=== PATIENT | female | born 1980 | race Caucasian/White ===

== ENCOUNTER 2016-06-23 19:14 | Emergency (ER) | payer OTHER ==
[~2016-06-23] VITALS: Ht 160 cm; Wt 65.9 kg
[~2016-06-23 19:14] MED LIST: ALB083NB3 INH; FLO110 IH; LEVO175T29 PO; ProAirHFA INH
[2016-06-23 19:17] VITALS: BP 156/90; PULSE 77; RESP 16; O2SAT 99
--- NOTE | 2016-06-23 19:51 | ED.REPORT ---
HPI-Chest Pain Under 40 Date of Service Jun 23, 2016 ED Provider: Monik Uriarte MD Pt is a 36 y/o female w/ a hx of anxiety presenting to the ED c/o intermittent rapid palpitations onset 3 days ago. She has general anxiety disorder and believed her palpiatiosn to be associated with this although Xanax did not provide any relief. She then thought it may be related to her albuterol inhaler but she has been experiencing episodes not related to this. These episodes have occurred 5 times a day. She noticed today SOB with exertion while walking up stairs along with some fatigue. She denies CP, nausea, vomiting, diaphoresis. She denies unilateral leg swelling, recent long periods of immobilization, exogenous estrogen use. Family history: [place] in mother age 42. Nursing Notes Stated Complaint: HEART RACING Chief Complaint: Dysrhythmia/Cardiac Nursing Notes Reviewed: Yes Allergies: Coded Allergies: morphine (Verified Allergy, Severe, HALLUCINATIONS, 08/29/12) oxycodone (Verified Allergy, Severe, N&V, 08/29/12) Uncoded Allergies: PENICILLIN (Allergy, Severe, Anaphylaxis, 06/23/16) Scheduled Albuterol-Expunged Drug, Do Not Renew! (ProAir HFA-Expunged Drug, Do Not Renew! ) 200 Puff/8.5 Gm Hfa.aer.ad 2 PUFFS INH Q4-6HP Albuterol-Expunged Drug, Do Not Renew! (Albuterol-Expunged Drug, Do Not Renew!) 2.5 Mg/3 Ml Nebu 3 ML INH QIDP Fluticasone HFA-Expunged Drug, Do Not Renew! (Flovent HFA-Expunged Drug, Do Not Renew!) 12 Gm Inh 2 PUFF IH BID SHAKE WELL-RINSE MOUTH Levothyroxine-Expunged Drug, Do Not Renew! (Levoxyl-Expunged Drug, Do Not Renew! ) 175 Mcg Tablet 175 MCG PO DAILY General Time Seen by MD: 19:45 Chief Complaint Other (Fast palpitations) Hx Obtained From: Patient Arrived By: Walk-in Sudden in Onset?: No Onset Occurred: 3 days ago Symptom Duration: Intermittent Risk Factors )( PE Risk Stratification No risk factors HEART Score HEART for MACE: Low index of susp (0), Normal ECG (0), Age under 45 (0), 1-2 CAD risk factors (1), < or = to NL troponin (0) HEART for MACE Score: 0-3 (low risk 0.9%-1.7%) Past Medical History Past Medical History Asthma Synovial mass Bipolar disorder PTSD Anxiety - On Xanax Hx thyroid CA s/p removal Hx cataracts s/p removal Past Surgical History Thyroidectomy T&A Cataracts Tubal ligation Family History [place] in mother age 42 Smoking History Never Smoker Social History Alcohol Use: "Social" Drug Use: Denies drug use Other Social History: Good social support Ambulatory Status Independent Review of Systems Constitutional: Reports: Fatigue, Denies: Chills, Fever Respiratory: Reports: Dyspnea on exertion, Shortness of breath Cardiovascular: Reports: Palpitations, Denies: Chest pain GI: Denies: Abdominal pain, Nausea, Vomiting Skin: Denies Diaphoresis Psychiatric: Reports: Anxiety Complete sys rev & neg: except as marked. Physical Exam Initial Vital Signs Vital Signs (First) Date Time Temp Pulse Resp B/P Pulse Ox O2 Delivery O2 Flow Rate FiO2 06/23/16 19:17 36.8 77 16 156/90 99 Room Air Initial VS: Reviewed Head / Eyes: Atraumatic, Normocephalic, PERRL ENT: Mucous membranes moist, Conjunctiva normal, No scleral icterus Neck: Supple, Full range of motion Abdomen / GI: Soft, Non-tender, No guarding, No rebound, No distention Extremities: Vascular intact, Neuro intact, No swelling, No tenderness Skin: Warm, Dry, No cyanosis Neurologic: Alert, Oriented, Nonfocal Psychiatric: Mood/affect normal, Behavior normal, Normal thought content General/Constitutional: Awake, Alert, No acute distress, Well appearing, Cooperative, Not toxic appearing Respiratory / Chest: Atraumatic, Breath sounds NL, Breath sounds = bilat, No respiratory distress, No rales, No rhonchi, No wheezing, No retractions, No stridor, No chest tenderness, No chest wall deformity, No crepitus Cardiovascular: Heart rate NL, Regular rhythm, Heart sounds NL, No gallop, No murmurs, No rubs, Cap refill not delayed, Peripheral circulation NL Interpretation & Diagnostics Lab Results Interpretation Result Diagram: 06/23/16195006/23/161950 Test 06/23/16 19:51 06/23/16 21:14 06/23/16 22:52 White Blood Count 8.7th/mm3 (3.8-10.1) Red Blood Count 4.35mil/mm3 (3.90-5.20) Hemoglobin 12.8g/dL (12.0-15.6) Hematocrit 39.3% (35.0-46.0) Mean Corpuscular Volume 90.3fL (81-100) Mean Corpuscular Hemoglobin 29.4pg (27.0-35.0) Mean Corpuscular Hemoglobin Concent 32.6% (32.0-37.0) Red Cell Distribution Width 14.5% (12.3-15.4) Platelet Count 378bil/L (150-400) Neutrophils (%) (Auto) 59.8% (40-74) Lymphocytes (%) (Auto) 26.4% (14-46) Monocytes (%) (Auto) 8.4% (4-12) Eosinophils (%) (Auto) 5.0% (0-5) Basophils (%) (Auto) 0.3% (0-3) Sodium Level 140mEq/L (134-144) Potassium Level 3.6mEq/L (3.5-5.2) Chloride Level 101mEq/L (97-108) Carbon Dioxide Level 28mmol/L (18-29) Blood Urea Nitrogen 7mg/dL (6-20) Creatinine 0.65mg/dL (0.57-1.00) Estimat Glomerular Filtration Rate 149mL/min (>59) Glucose Level 88mg/dL (60-99) Calcium Level 9.4mg/dL (8.5-10.1) Magnesium Level 1.8mg/dL (1.6-2.6) Total Bilirubin 0.2mg/dL (0.0-1.2) Aspartate Amino Transf (AST/SGOT) 14U/L (0-50) Alanine Aminotransferase (ALT/SGPT) 13U/L (0-32) Alkaline Phosphatase 83U/L (25-150) Pro-B-Type Natriuretic Peptide 92.64pg/mL (0-130) Total Protein 7.8g/dL (6.4-8.4) Albumin 4.6g/dL (3.4-5.0) Thyroid Stimulating Hormone (TSH) 22.270uIU/mL (0.450-4.500) Free Thyroxine 0.69ng/dL (0.82-1.77) Hold Urine Received (Received) Troponin T < 0.010ug/L (0.0-0.011) ECG Interpretation ECG Interpretation: Sinus bradycardia rate [address] elevation T wave inversion AvR and V1 Time: 20:01 Interpreted by: ED physician Normal ECG Interpretation: No acute ischemic changes ECG Interpretation: Sinus rhythm rate [address] elevation T wave inversion AvR and V1 Time: 23:49 Interpreted by: ED physician Normal ECG Interpretation: No acute ischemic changes, No change from prior ECGs X-Ray Chest Interpretation Chest Xray Interpretation: IMPRESSION: No acute cardiopulmonary findings. Dictated by: Belén Irwin M.D. on 06/23/2016 at 20:12 Approved by: Belén Irwin M.D. on 06/23/2016 at 20:13 View: Portable, 1 view Interpretation / Wet Read by: Interpret - Radiologist Re-Eval/Medical Decision Med Decision/Clinical Course 36-year-old female with past medical history of hypothyroidism secondary to total thyroidectomy, and anxiety here with palpitations for the last several days which have been intermittent. Patient had some associated shortness of breath. Differential diagnosis includes but is not limited to ACS versus PE versus pneumonia versus pleural effusion. Chest x-ray is unremarkable. Patient has low risk on hard score, and had 2 negative troponins 3 hours apart, making ACS extremely low on differential. She is PERC negative at this time, and I do not feel she has concern for PE. She does have mild hypothyroidism which I advised her to follow up about her primary care. She is aware and amenable to discharge with very strict return precautions. Counseled Regarding: Diagnosis, Lab results, Need for follow-up, When/why to return to ED Discharge & Departure Primary Impression: Palpitations Disposition: Home Discharge Condition All VS Reviewed: Yes Condition: Stable Patient Instructions: Palpitations (ED) Additional Instructions: No dangerous cause for you palpitations was discovered. Your EKGs and chest x- ray was normal. The only abnormality with your lab was your thyroid level which was 0.69. I recommend you follow-up with your primary care physician this week to discuss today's findings. Return to the emergency department if you palpitations are persistent, you feel significantly lightheaded or dizzy, or Referrals: Vonda Brady PA-C (PCP) Carlos Alberto Attestation Portions of this note were transcribed by Sergio Dodd. I, Dr. Uriarte personally performed the history, physical exam and medical decision-making; I reviewed and confirmed the accuracy of the information in the transcribed note. Signed by Carlos Alberto Arellano, 06/23/[id number] copies to: Vonda Brady PA-C, Rebecca A MD Jun 23, 2016 19:51 SERGIO DODD Jun 23, 2016 20:09
[2016-06-23 20:01] LABS: BASOPHILS % (AUTO) 0.3 % (0-3); MONOCYTES % (AUTO) 8.4 % (4-12); Mean Corpuscular Hemoglobin 29.4 pg (27.0-35.0); Mean Corpuscular Volume 90.3 fL (81-100); NEUTROPHILS % (AUTO) 59.8 % (40-74); Platelet Count 378 bil/L (150-400)
--- NOTE | 2016-06-23 20:14 | DRSVH ---
PROCEDURE: X-RAY CHEST ONE VIEW, PORTABLE ([id number]) INDICATIONS: chest pain TECHNIQUE: One view of the chest was acquired. COMPARISON: None. FINDINGS: Surgical changes and devices: None. Lungs and pleura: No pleural effusions or pneumothorax. Lungs are clear. Mediastinum: Mediastinal contours appear normal. Heart size is normal. Bones and chest wall: No suspicious bony lesions. Overlying soft tissues appear unremarkable. IMPRESSION: No acute cardiopulmonary findings. Dictated by: Belén Irwin M.D. on 06/23/2016 at 20:12 Approved by: Belén Irwin M.D. on 06/23/2016 at 20:13
[2016-06-23 20:29] LABS: Magnesium 1.8 mg/dL (1.6-2.6)
[2016-06-23 20:33] LABS: TROPONIN T < 0.010 ug/L (0.0-0.011)
[2016-06-23 21:40] VITALS: BP 117/71; PULSE 57; RESP 16; O2SAT 100
[2016-06-24 00:20] VITALS: BP 116/64; PULSE 60; RESP 17; O2SAT 99
== END 2016-06-24 00:17 | disposition home or self-care (01) ==
LOC: SED 19:14
DX: R00.2 Palpitations (principal); R06.02 Shortness of breath; R53.83 Other fatigue; J45.909 Unspecified asthma, uncomplicated; F31.9 Bipolar disorder, unspecified; Z88.5 Allergy status to narcotic agent